=== PATIENT | female | born 1990 | race Caucasian/White ===

== ENCOUNTER 2023-01-25 20:33 | Emergency (ER) | payer BC ==
[~2023-01-25] VITALS: Ht 167.6 cm; Wt 139.0 kg
[2023-01-25 20:35] VITALS: TEMP 99.1
[2023-01-25] MEDS ORDERED: ipratropium/albuterol 3ml nebule NEB ONE (20:45)
[2023-01-25 20:50] VITALS: PULSE 94; RESP 22; O2SAT 97
[2023-01-25 21:01] VITALS: PULSE 90; RESP 20; O2SAT 95
[2023-01-25 21:08] LABS: EOSINOPHILS # (AUTO) 0.3 X10'3 (0-0.9)
[2023-01-25 21:10] LABS: BASOPHILS # (AUTO) 0.1 X10'3 (0-0.2); BASOPHILS % (AUTO) 0.6 % (0-1); EOSINOPHILS % (AUTO) 3.6 % (0-6); HEMATOCRIT 44.8 % (35.0-45.0); HEMOGLOBIN 15.2 g/dl (12.0-16.0); LYMPHOCYTES # (AUTO) 2.1 X10'3 (1.1-4.8); LYMPHOCYTES % (AUTO) 23.6 % (21-51); MEAN CORPUSCULAR HEMOGLOBIN 30.7 PG (27.0-31.0); MEAN CORPUSCULAR VOLUME 90.3 FL (78-98); MONOCYTES # (AUTO) 0.7 X10'3 (0-0.9); MONOCYTES % (AUTO) 8.3 % (2-12); NEUTROPHILS # (AUTO) 5.8 X10'3 (1.8-7.7); NEUTROPHILS % (AUTO) 63.9 % (42-75); PLATELET COUNT 256 X10'3 (140-440); RED BLOOD COUNT 4.96 X10'6 (4.20-5.60); RED CELL DISTRIBUTION WIDTH 13.4 % (11.5-14.5)
[2023-01-25 21:19] LABS: ALANINE AMINOTRANSFERASE 74 U/L (12-78); ALBUMIN 3.7 G/DL (3.4-5.0); ALBUMIN/GLOBULIN RATIO 0.9 (1.1-1.5); ALKALINE PHOSPHATASE 75 IU/L (46-116); ANION GAP 10 (8-16); ASPARTATE AMINO TRANSFERASE 44 U/L (10-37); BILIRUBIN,TOTAL 0.2 MG/DL (0.1-1.0); BLOOD UREA NITROGEN 9 MG/DL (7-18); BUN/CREATININE RATIO 15.5 (10.0-20.0); CALCIUM 8.6 MG/DL (8.5-10.1); CHLORIDE 103 MMOL/L (99-107); CREATININE 0.58 MG/DL (0.40-0.90); GLUCOSE 104 MG/DL (70-104); POTASSIUM 3.9 MMOL/L (3.5-5.1); SODIUM 135 MMOL/L (135-145); TOTAL CARBON DIOXIDE 21.9 MMOL/L (24-32); TOTAL PROTEIN 7.6 G/DL (6.4-8.2); eCRCL 129 ML/MIN; eGFR > 90 ML/MIN
[2023-01-25 21:24] LABS: PRO BRAIN NATRIURETIC PEPTIDE 61 PG/ML (0-125)
[2023-01-25] MEDS ORDERED: dexamethasone sod phosphate 10mg/ml inj IV STA (23:20)
[2023-01-25] MEDS ORDERED: albuterol 2.5 MG/3 ML nebule NEB ONE (23:20)
[2023-01-26 00:35] VITALS: PULSE 84; RESP 18; O2SAT 96
[2023-01-26 00:42] VITALS: PULSE 82; RESP 16; O2SAT 100
[2023-01-26 01:00] VITALS: BP 129/79; PULSE 91; RESP 17; O2SAT 97
[2023-01-26] MEDS ORDERED: ALBU18HF2 INH (01:05)
== END 2023-01-26 01:18 | disposition home or self-care (01) ==
LOC: ER 20:35
DX: J45.909 Unspecified asthma, uncomplicated (principal); Z20.822 Contact with and (suspected) exposure to COVID-19; J06.9 Acute upper respiratory infection, unspecified; F17.200 Nicotine dependence, unspecified, uncomplicated
CPT/HCPCS: 36415; 71045; 80053; 83880; 84484; 85025; 87502; 87503; 87811; 93005; 94640; 96374; 99285; J1100; 94760